=== PATIENT | male | born 1975 | race Two or more races ===

== ENCOUNTER 2018-06-15 13:48 | Emergency (ER) | payer SELFPAY ==
[~2018-06-15] VITALS: Ht 157.5 cm; Wt 75.7 kg
[2018-06-15 13:55] VITALS: BP 134/92
[2018-06-15] MEDS ORDERED: METOCLOPRAMIDE HCL 10 MG/2 ML VIAL IM ONE (14:30)
[2018-06-15] MEDS ORDERED: LORATADINE 10 MG TABLET ONE (14:45)
[2018-06-15] MEDS ORDERED: METOCLOPRAMIDE HCL 10 MG/2 ML VIAL ONE (14:45)
[2018-06-15] MEDS ORDERED: LORATADINE 10 MG TABLET PO STA (14:53)
== END 2018-06-15 15:25 | disposition home or self-care (01) ==
LOC: ER 13:48
DX: R51 Headache (principal); I10 Essential (primary) hypertension; E78.5 Hyperlipidemia, unspecified; Z98.890 Other specified postprocedural states; Z60.2 Problems related to living alone
CPT/HCPCS: 96374; 99283; J2765